=== PATIENT | female | born 1980 ===

== ENCOUNTER 2020-10-10 14:04 | Outpatient (REF) | payer OTHER, SELFPAY | END 2020-10-10 14:05 | disposition home or self-care (01) | LOC: HO.LAB 14:04 | PROVIDERS: PCP Internal Medicine; Visit Provider Internal Medicine | DX: Z20.828 Contact with and (suspected) exposure to other viral communicable diseases (principal) | CPT/HCPCS: C9803; U0003 ==

== ENCOUNTER 2021-03-19 15:12 | Emergency (ER) | payer OTHER, SELFPAY ==
--- NOTE | ~2021-03-19 | CT_ITS ---
EXAMINATION: CT ANGIOGRAM LEFT LOWER EXTREMITY. CLINICAL INFORMATION: Left foot the toes. Delayed capillary refill, apparently ongoing for more than 2 months. COMPARISON: None TECHNIQUE: CTA of the left lower extremity was performed following administration of 80 mL of Omnipaque 350. Axial images were reconstructed in coronal and sagittal pain. This CT examination was performed using dose optimization techniques as appropriate, variously including the following: *Automated exposure control *Adjustment of mA and/or kV according to patient size (this includes techniques or standardized protocols for targeted exams where dose is matched to indication/reason for exam; i.e. extremities or head) *Use of iterative reconstruction technique DLP: 596. mGy-cm FINDINGS: The arterial anatomy is visualized from the level of the midpelvis to the left fourth. The left common iliac, internal and external iliac, the left femoral, popliteal arteries are widely patent. The popliteal artery shows normal trifurcation into the anterior, posterior tibial and peroneal arteries. The posterior tibial artery is widely patent, continued into the plantar aspect of the foot through the tarsal tunnel dividing into medial and lateral plantar arteries. The anterior tibial artery shows significant luminal narrowing and minimal opacification at the level of the anterior part of the ankle, without visualization of the dorsalis pedis artery. The peroneal artery is patent to the level of the distal part of the leg. Within the foot, the plantar arches appear to be patent by dorsalis pedis artery, and its branches are not visualized. This could be technical related to flow phenomenon or underlying pathologic process. CT/CT angio LE LT IMPRESSION: CTA of the left lower extremity shows widely patent arterial tree from the level of the left common iliac artery to the level of the popliteal arterial trifurcation. Three-vessel runoff is seen within the leg to the level of the junction between the proximal two thirds and distal one third of the leg with patent posterior tibial artery seen to the level of the plantar surface of the left foot dividing into medial and lateral to plantar arteries. The distal one third of the anterior tibial artery is not visualized with nonvisualization of the dorsalis pedis artery, likely occluded. The peroneal artery is widely patent at its entire course.
--- NOTE | ~2021-03-19 | XR_ITS ---
EXAMINATION: XR FOOT, LEFT CLINICAL INFORMATION: Pain left foot COMPARISON: None TECHNIQUE: AP, lateral, and oblique views of the left foot. FINDINGS: The bones and soft tissues are normal. No fracture. Alignment is anatomic. Joint spaces are maintained. There is a moderate sized retrocalcaneal and a small calcaneal heel enthesophytes. XR/XR foot LT min 3V IMPRESSION: No acute process. Moderate size retrocalcaneal and small calcaneal heel enthesophytes.
[2021-03-19 16:01] VITALS: BP 149/69; PULSE 76; RESP 16; TEMP 37.3; O2SAT 100; BMI 33.8
--- NOTE | 2021-03-19 17:21 | ED_ITS ---
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 She did have appointments with a physician to evaluate this problem however the appointment got canceled. She states the pain has been gradually worsening. She does not report any other symptoms at this time MD complaint: foot injury Onset (ago): month(s) Injury: Left: foot and toes Type of Injury: unknown Severity: moderate Severity scale (1-10): 5 Relieving factors: nothing Exacerbating factors: weight bearing and movement Associated symptoms: swelling and ambulatory Related Data Home Medications Medication Instructions Recorded Confirmed gabapentin 300 mg capsule 300 mg PO BEDTIME 10/23/20 Previous Rx's Medication Instructions Recorded melatonin 5 mg tablet 10 mg PO BEDTIME #180 tab 08/26/20 labetalol 100 mg tablet 100 mg PO BID 90 Days #180 tab 08/31/20 methocarbamol 500 mg tablet 500 mg PO TID PRN 30 Days #90 tab 10/08/20 aspirin 81 mg tablet,delayed 81 mg PO DAILY 90 Days #90 tab 10/16/20 release lisinopril 10 mg tablet 10 mg PO DAILY #90 tab 10/17/20 gabapentin 100 mg capsule 100 mg PO DAILY 90 Days #90 cap 10/23/20 atorvastatin 40 mg tablet 40 mg PO BEDTIME 90 Days #90 tab 10/29/20 fluoxetine 40 mg capsule 40 mg PO DAILY #30 cap 12/11/20 lorazepam 0.5 mg tablet 0.5 mg PO BID PRN 30 Days #60 tab 02/07/21 Allergies Allergy/AdvReac Type Severity Reaction Status Date / Time No Known Allergies Allergy Verified 03/19/21 16:01 [No Known Allergies*] Review of Systems Review of Systems: Constitutional: No Fever, No Chills ENT/Mouth: No Ear Pain, No Hoarseness, No sore throat Eyes: No Eye Pain, No Swelling, No Redness, No Foreign Body Cardiovascular: No Chest Pain, No SOB Respiratory: No Cough, No Dyspnea Gastrointestinal: No Nausea, No Vomiting, No Diarrhea, No abdominal Pain Genitourinary: No Dysuria, No Hematuria Musculoskeletal: positive left foot and toe pain, No Myalgias, No Joint Swelling Skin: No Skin lacerations, No rash Neuro: No Weakness, No Numbness, No Paresthesias, No Loss of Consciousness, No Dizziness, No Headache Psych: No Anxiety/Panic, No Depression Heme/Lymph: no easy bruising, no Lymphadenopathy Endocrine: No Polyuria, No Polydipsia Yes all other systems are reviewed and are negative FOR[facility] Past Medical History Attestation statement: The following information was validated with the patient. Source: old records reviewed Medical History (Reviewed 03/19/21 @ : by Selin Sparks NP) Blurry vision CAD (coronary artery disease) Ear discomfort Essential hypertension History of stroke Left hemiplegia Surgical History (Reviewed 03/19/21 @ : by Selin Sparks NP) No pertinent past surgical history Family History Family History Father HIV (human immunodeficiency virus infection) Mother Chronic mental illness Asthma Family/Other FH: mental illness Social History Social History (Reviewed 03/19/21 @ 17: by Selin Sparks NP) Smoking Status: Former smoker Tobacco Type: Cigarette Advance Directives: No Advance Directives Information Provided: Yes Patient : No Physical Exam Vital Signs: Vital Signs: Last Vital Signs Temp 99.1 F 03/19/21 16:01 Pulse 76 03/19/21 16:01 Resp 16 03/19/21 16:01 BP 149/69 H 03/19/21 16:01 Pulse Ox 100 03/19/21 16:01 Body Mass Index 33.8 Appearance: Alert. Oriented X3. No acute distress. Eyes: Pupils equal, round and reactive to light. ENT: Pharynx normal. Neck: Normal inspection. Neck supple. CVS: Normal heart rate and rhythm. Pulses normal. Respiratory: No respiratory distress. Breath sounds normal. Abdomen: Soft and nontender. Skin: Skin warm and dry. Normal skin color. Normal skin turgor. Extremities: Left-sided hemiplegia with left upper extremity contracture with orthotic device, has decreased capillary refill to 2nd 3rd and 4th toes, 2nd toe is discolored, no swelling appreciated. Neuro: No motor deficit. No sensory deficit. Course Course Course Narrative: 40-year-old female with past medical history of CVA with left- sided hemiplegia, hypertension, and anxiety presents with several months of left foot pain and intermittent swelling. States that her toes have been discolored and that she has loss of movement. Plan is for CTA of lower extremity. We did consider venous and arterial duplex however the foot and toes would not be visualized. CT A positive for distal tibial occlusion, discussion with Dr. Chan, patient can be followed up as an outpatient in the office tomorrow. I did discuss this with the patient, she does understand that she must follow-up with vascular surgery tomorrow. Consultations Consultation #1: Rocio Time: 21:14 MDM - Extremity Injury (Lower) MDM Narrative Medical decision making narrative: Vascular occlusion, peripheral vascular disease, DVT Medical Records Attestation: I reviewed the patient's medical records. Lab Data Attestation: I reviewed the patient's lab results. Result diagrams: 03/19/21 17:39 03/19/21 17:39 Labs: Lab Results 03/19/21 03/19/21 03/19/21 Range/Units 17:39 17:39 19:43 WBC 9.0 (4.8-10.8) X10*3/uL RBC 4.21 (4.20-5.50) X10*6/uL Hgb 12.1 (12.0-16.0) g/dl Hct 37.2 (37-47) % MCV 88.4 (80-98) fL MCH 28.7 (27.0-33.0) pg MCHC 32.5 (31.0-35.0) g/dl RDW 14.3 (11.0-16.0) % Plt Count 217 (160-400) X10*3/uL MPV 10.0 (9.4-12.3) fL Immature Gran % (Auto) 0.1 (0.0-0.4) % Neut % (Auto) 52.2 (45-73) % Lymph % (Auto) 36.3 (20-40) % [place] % (Auto) 6.4 (2-11) % Eos % (Auto) 4.8 H (0-4) % Baso % (Auto) 0.2 (0-2) % Lymph # (Auto) 3.3 (1.2-4.9) X10*3/uL [place] # (Auto) 0.6 (0.1-1.2) X10*3/uL Eos # (Auto) 0.4 (0.0-0.4) X10*3/uL Baso # (Auto) 0.0 (0.0-0.2) X10*3/uL Abs Immat Gran (auto) 0.01 (0.00-0.03) X10*3/uL Absolute Neuts (auto) 4.7 (2.0-8.3) X10*3/uL Absolute Nucleated RBC 0.000 (0.0-0.012) X10*3/uL Nucleated RBC % (auto) 0.0 (0.0-0.2) /100WBC Sodium 138 (135-145) mmol/L Potassium 4.1 (3.3-5.1) mmol/L Chloride 106 (96-108) mmol/L Carbon Dioxide 25 (22-29) mmol/L Anion Gap 11 L (12-20) BUN 10 (9-16) mg/dL Creatinine 0.80 (0.5-1.4) mg/dL Estim Creat Clear Calc 94.8 Estimated GFR > 60 POC Glucose 94 (60-115) mg/dL Random Glucose 90 (60-115) mg/dL Calcium 8.9 (8.4-10.2) mg/dL Imaging Data CTA left lower extremity: Attestation: I personally reviewed and interpreted this imaging study as follows: Radiologist's impression: EXAMINATION: CT ANGIOGRAM LEFT LOWER EXTREMITY. CLINICAL INFORMATION: Left foot the toes. Delayed capillary refill, apparently ongoing for more than 2 months. COMPARISON: None TECHNIQUE: CTA of the left lower extremity was performed following administration of 80 mL of Omnipaque 350. Axial images were reconstructed in coronal and sagittal pain. This CT examination was performed using dose optimization techniques as appropriate, variously including the following: *Automated exposure control *Adjustment of mA and/or kV according to patient size (this includes techniques or standardized protocols for targeted exams where dose is matched to indication/reason for exam; i.e. extremities or head) *Use of iterative reconstruction technique DLP: 596. mGy-cm FINDINGS: The arterial anatomy is visualized from the level of the midpelvis to the left fourth. The left common iliac, internal and external iliac, the left femoral, popliteal arteries are widely patent. The popliteal artery shows normal trifurcation into the anterior, posterior tibial and peroneal arteries. The posterior tibial artery is widely patent, continued into the plantar aspect of the foot through the tarsal tunnel dividing into medial and lateral plantar arteries. The anterior tibial artery shows significant luminal narrowing and minimal opacification at the level of the anterior part of the ankle, without visualization of the dorsalis pedis artery. The peroneal artery is patent to the level of the distal part of the leg. Within the foot, the plantar arches appear to be patent by dorsalis pedis artery, and its branches are not visualized. This could be technical related to flow phenomenon or underlying pathologic process. CT/CT angio LE LT IMPRESSION: CTA of the left lower extremity shows widely patent arterial tree from the level of the left common iliac artery to the level of the popliteal arterial trifurcation. Three-vessel runoff is seen within the leg to the level of the junction between the proximal two thirds and distal one third of the leg with patent posterior tibial artery seen to the level of the plantar surface of the left foot dividing into medial and lateral to plantar arteries. The distal one third of the anterior tibial artery is not visualized with nonvisualization of the dorsalis pedis artery, likely occluded. The peroneal artery is widely patent at its entire course. Discharge Plan Discharge Clinical Impression: Arterial occlusion Patient Disposition: Home, Self-Care Instructions: Leg Pain (ED) Additional Instructions: You were evaluated for left lower extremity toe discoloration and pain. CT angiogram indicates a suspected occlusion to the anterior tibial artery and dorsalis pedis artery. You must follow-up with vascular surgery. I referred you to Dr. Chan. Please call and request an appointment. Thank you for choosing this emergency department for evaluation. Please follow-up with primary care physician as needed. Return to the emergency department for any new, concerning, or worsening symptoms. Prescriptions: No Action melatonin 5 mg tablet 10 mg PO BEDTIME Qty: 180 RF: 11 labetalol 100 mg tablet 100 mg PO BID 90 Days Qty: 180 RF: 3 methocarbamol 500 mg tablet 500 mg PO TID PRN (Reason: muscle pain) 30 Days Qty: 90 RF: 6 lisinopril 10 mg tablet 10 mg PO DAILY Qty: 90 RF: 1 gabapentin 300 mg capsule 300 mg PO BEDTIME RF: 0 gabapentin 100 mg capsule 100 mg PO DAILY 90 Days Qty: 90 RF: 3 atorvastatin 40 mg tablet 40 mg PO BEDTIME 90 Days Qty: 90 RF: 3 fluoxetine 40 mg capsule 40 mg PO DAILY Qty: 30 RF: 6 lorazepam 0.5 mg tablet 0.5 mg PO BID PRN (Reason: anxiety) 30 Days Qty: 60 RF: 0 aspirin [Adult Aspirin Regimen] 81 mg tablet,delayed release (DR/EC) 81 mg PO DAILY 90 Days Qty: 90 RF: 3 Referrals: Efren Chan MD [Physician] - 2 days (Distal 1/3 of anterior tibial artery and dorsalis pedis artery occluded.) Interventions: ED Discharge Assessment Last Done: 03/19/21 22:16 Discharge Date/Time: 03/19/21 22:18
[2021-03-19 17:44] LABS: MANUAL DIFF FLAG NO
[2021-03-19 17:45] LABS: Basophils Percent Auto 0.2 % (0-2); Eosinophils Absolute Auto 0.4 X10*3/uL (0.0-0.4); Eosinophils Percent Auto 4.8 % (0-4); Hematocrit 37.2 % (37-47); Hemoglobin 12.1 g/dl (12.0-16.0); Imm Gran Abs Auto 0.01 X10*3/uL (0.00-0.03); Imm Gran Pct Auto 0.1 % (0.0-0.4); Lymphocytes Absolute Auto 3.3 X10*3/uL (1.2-4.9); Lymphocytes Percent Auto 36.3 % (20-40); Mean Corpuscular HGB Conc 32.5 g/dl (31.0-35.0); Mean Corpuscular Hemoglobin 28.7 pg (27.0-33.0); Mean Corpuscular Volume 88.4 fL (80-98); Monocytes Absolute Auto 0.6 X10*3/uL (0.1-1.2); Monocytes Percent Auto 6.4 % (2-11); Neutrophils Absolute Auto 4.7 X10*3/uL (2.0-8.3); Neutrophils Percent Auto 52.2 % (45-73); Platelet Count 217 X10*3/uL (160-400); Red Blood Count 4.21 X10*6/uL (4.20-5.50); Red Cell Distribution Width 14.3 % (11.0-16.0)
[2021-03-19 18:07] LABS: Anion Gap 11 (12-20); Blood Urea Nitrogen 10 mg/dL (9-16); Calcium 8.9 mg/dL (8.4-10.2); Carbon Dioxide 25 mmol/L (22-29); Chloride 106 mmol/L (96-108); Creatinine Clr Calc Pharmacy 94.8; Estimated Glomerular Filt Rate > 60; Glucose Random 90 mg/dL (60-115); Potassium 4.1 mmol/L (3.3-5.1); Sodium 138 mmol/L (135-145)
--- NOTE | 2021-03-19 19:20 | PC.NURSE ---
PT TAKEN TO CT SCAN.
[2021-03-19 19:47] LABS: Glucose, Whole Blood 94 mg/dL (60-115)
[2021-03-19] MEDS: iohexoL 350 MG/ML 100 ML INFUS..BTL IV (19:55)
== END 2021-03-19 22:18 | disposition home or self-care (01) ==
PROVIDERS: Nurse Practitioner Family; Emergency Provider Emergency Medicine Emergency Medical Services; PCP Internal Medicine
DX: I74.3 Embolism and thrombosis of arteries of the lower extremities (principal); M79.672 Pain in left foot; I10 Essential (primary) hypertension; I69.354 Hemiplegia and hemiparesis following cerebral infarction affecting left non-dominant side; Z87.891 Personal history of nicotine dependence
CPT/HCPCS: 36415; 73630; 73706; 80048; 82947; 85025; 99284; Q9967

== ENCOUNTER → 2021-03-22 13:53 | Outpatient (BNVA) | payer OTHER, SELFPAY | PROVIDERS: PCP Internal Medicine; Visit Provider Surgery Vascular Surgery | DX: M79.672 Pain in left foot (principal) | CPT/HCPCS: 99202 ==

== ENCOUNTER → 2022-04-30 10:57 | Outpatient (BNVA) | payer MEDICARE, MEDICAID, SELFPAY | PROVIDERS: PCP Internal Medicine; Visit Provider Obstetrics & Gynecology | DX: F32.A Depression, unspecified (principal) | CPT/HCPCS: 99202 ==

== ENCOUNTER → 2023-01-01 11:18 | Outpatient (BNVA) | payer MEDICARE, MEDICAID, SELFPAY | PROVIDERS: PCP Internal Medicine; Visit Provider Obstetrics & Gynecology | DX: Z13.89 Encounter for screening for other disorder (principal) ==

== ENCOUNTER 2023-08-07 10:37 | Outpatient (AMB) | payer OTHER, SELFPAY ==
--- NOTE | 2023-08-07 10:43 | MHC.PC.OV ---
Vital Signs 08/07/23 10:44 Height 5 ft 2 in Weight 181 lb BMI 33.1 BP 120/72 Blood Pressure Location Lt brachial Position Sitting Intake Visit Reasons: PE Intake Note: Patient here for a physical exam [employer] Required: No Accompanied by: Self / Same As Patient Allergies No Known Allergies [No Known Allergies*] Allergy (Verified 08/07/23 11:06) Medication List - Last Reconciled 08/07/23 by Shaista Blanco MD atorvastatin 40 mg PO BEDTIME 90 days fluoxetine 40 mg PO DAILY fluoxetine mg PO gabapentin 100 mg PO DAILY 90 days gabapentin 300 mg PO BEDTIME 90 days labetalol 100 mg PO BID 90 days lisinopril 10 mg PO DAILY lorazepam 0.5 mg PO BID PRN 30 days melatonin 10 mg (2 x 5 mg) PO BEDTIME methocarbamol 500 mg PO TID PRN 30 days Tobacco use date assessed: 04/04/23 Dental Screening Dental Screen Date: 08/07/23 Did you have a dental visit in the last 12 months?: No Did you have a dental problem in the last 6 months where you did not have access to dental care?: No Was dental information given to patient?: Patient has dentist HPI HPI Comments History of Present Illness Details This is a 42-year-old female with mild major depression and left hemiplegia secondary of a stroke that comes today for her physical exam. Depression stable with fluoxetine. Has left hemiplegia with her left arm contracted making a fist and does limp but is able to walk with no assistive device. Has never had a mammogram. Last Pap smear was at [facility] less than a year ago and was normal. [facility] Medical History (Updated 08/07/23 @ 11:56 by Shaista Blanco MD) Dyslipidemia Ear discomfort Blurry vision CAD (coronary artery disease) Left hemiplegia History of stroke Essential hypertension Surgical History No pertinent past surgical history Family History Father HIV (human immunodeficiency virus infection) Mother Chronic mental illness Asthma Family/Other FH: mental illness Social History Housing: Apartment Alcohol intake: never Patient Tobacco Use Status: Current everyday Tobacco user Tobacco use type: Cigarette Cigarettes Per Day: 2 e-Cigarette/Vaping Use: Never Used Second Hand Smoke Exposure: No service: No Current occupational status: unemployed Cognitive needs: No Hearing needs: No Vision needs: No Female Reproductive History Menstrual Age of Menarche: 10 Questionnaire Thrive Questionnaire Date Thrive assessed: 04/04/23 LEX-7 AMB Questionnaire LEX-7 Date LEX - 7 assessed: 04/04/23 Source: Developed by Drs. Lorenzo Montgomery, Harriet Cruz, Lobo Travis and colleagues, with an educational temo from [employer]. Review of Systems Const All systems reviewed & are unremarkable except as noted in HPI and below Eyes Reports no additional complaints, Denies change in vision and Denies other visual disturbances Card Denies chest pain at rest, Denies chest pain with activity, Denies edema, Denies irregular heart rhythm, Denies claudication, Denies dyspnea, Denies dyspnea on exertion, Denies orthopnea, Denies paroxysmal nocturnal dyspnea and Denies slow heart rate Resp Denies cough, Denies dyspnea and Denies dyspnea on exertion GI Denies abdominal pain, Denies change in bowel habits, Denies excessive flatus, Denies nausea and Denies vomiting Denies urinary incontinence, Denies urinary hesitancy and Denies urinary urgency Musc Reports abnormal gait, Denies atrophy, Denies deformity and Denies limited range of motion Skin/Breast Denies bleeding lesions, Denies changing lesions and Denies rash Neuro Reports abnormal gait, Denies lack of coordination and Reports focal weakness Physical exam (Primary Care) Vital Signs: Last Vital Signs BP 120/72 08/07/23 10:44 BMI result Body Mass Index 33.1 Tobacco/Smoking Status: Tobacco use Status Tobacco use date assessed 04/04/23 08/07/23 10:48 Patient Tobacco Use Status Current everyday Tobacco 08/07/23 10:48 Tobacco use type Cigarette 08/07/23 10:48 e-Cigarette/Vaping Use Never Used 08/07/23 10:48 Thrive Assessment: Date of Thrive Assessment Date Thrive assessed 04/04/23 08/07/23 10:48 Const Orientation/consciousness: patient oriented x3 HENMT Head: Yes normal to inspection, Yes normocephalic and Yes atraumatic Ears: external ears normal Eyes General: appearance normal, both eyes and all related structures Eyelids: Yes eyelids normal Conjunctivae: conjunctivae normal Neck Neck: Yes normal visual inspection and Yes supple Resp Effort & Inspection: normal respiratory effort Auscultation: clear to auscultation bilaterally Cardio Jugular venous distension: no JVD Rate: regular rate Rhythm: regular rhythm Heart sounds: S1 normal heart sound present and S2 normal heart sound present GI Inspection: Yes normal to inspection Palpation (GI): Soft to palpation and nontender Auscultation: normal bowel sounds Skin General skin exam: no rashes or lesions noted Neuro General: patient oriented x3 Motor exam (neuro): Abnormal motor strength present (5/5 right, 3/5 left) Extrem General: Yes full ROM Psych Appearance: grossly normal Office Procedures Flu Questionnaire Does the patient have a severe egg allergy?: No Does the patient have severe life threatening allergies?: No Does the patient have a fever or illness today?: No Has the patient ever had Guillain-[place] Syndrome?: No Has the patient ever had any past reaction to a flu shot?: No Immunizations flu vacc [id number] 6mos up(PF) 60 mcg(15 mcgx4)/0.5 mL IM syringe Performing Provider: Shaista Blanco MD Performing Location: [facility] Administered by: MARTÍNEZ Nelson on 08/07/23 11:20 Dose Route Admin Location Dispensed Lot Number Expiration Date NDC Full Time Babysitter 0.5 mL IM Right Deltoid 0.5 mL [id number] 05/02/24 77568-254-00 [facility] VIS Given Date VIS Provided VIS Publication Date 08/07/23 Single Vaccine 21 Eligibility Eligibility Date Funding Source Not [facility] Eligible 08/07/23 Private Assessment and Plan Assessment & Plan (1) Physical exam: Code(s): Z00.00 - Encounter for general adult medical examination without abnormal findings Plan: Repeat in a year (2) Left hemiplegia: Code(s): G81.94 - Hemiplegia, unspecified affecting left nondominant side Plan: Keep blood pressure well control for secondary prophylaxis. Do exercise as tolerated. (3) Mild major depression: Code(s): F32.0 - Major depressive disorder, single episode, mild Plan: Continue SSRIs. Orders: Orders MM screening mammo BI Today Z12.31 - Encounter for screening mammogram for malignant neoplasm of breast Influenza [id number] Immunization Today Z23 - Encounter for immunization Lipid Panel Today E78.5 - Hyperlipidemia, unspecified Comprehensive [place]. Panel Fast Today Z00.00 - Encounter for general adult medical examination without abnormal findings Coding Level of Care Code Est Pt Prev Care 40-64y(89765) Diagnoses Physical exam Z00.00 Left hemiplegia G81.94 Mild major depression F32.0 Time Spent (min) 32
[2023-08-07 10:44] VITALS: BP 120/72; BMI 33.1
== END 2023-08-07 11:23 | disposition home or self-care (01) ==
PROVIDERS: PCP Internal Medicine; Visit Provider Internal Medicine
DX: Z00.00 Encounter for general adult medical examination without abnormal findings (principal); G81.94 Hemiplegia, unspecified affecting left nondominant side; F32.0 Major depressive disorder, single episode, mild; Z23 Encounter for immunization
CPT/HCPCS: 90471; 90686; 99396

== ENCOUNTER 2023-08-29 10:07 | Outpatient (REF) | payer OTHER, SELFPAY ==
--- NOTE | ~2023-08-29 | MM_ITS ---
EXAMINATION: MM SCREENING DIGITAL BREAST TOMOSYNTHESIS, BILATERAL CLINICAL INFORMATION: Screening. Asymptomatic. COMPARISON: Mammography: There are no prior mammograms for comparison. This is a baseline study. TECHNIQUE: Digital breast tomosynthesis is performed in both the craniocaudal and mediolateral oblique views along with computer-aided detection (CAD). Synthesized 2D images are generated from the tomosynthesis. FINDINGS: There are scattered areas of fibroglandular density (ACR BI-RADS breast composition Category b). There are no significant masses, abnormal calcifications, or other abnormalities. MM/MM tomosynthesis screening BI IMPRESSION: No mammographic evidence of malignancy. ASSESSMENT: BI-RADS BI-RADS 1 - Negative RECOMMENDATION: Routine annual mammography screening. 1 year F/U This examination should not preclude the clinical evaluation of a suspicious palpable abnormality. This patient's information was entered into a reminder system with a target due date for their next mammogram.
== END 2023-08-29 10:08 | disposition home or self-care (01) ==
LOC: HO.MAMMO 10:07
PROVIDERS: Visit Provider Internal Medicine
DX: Z12.31 Encounter for screening mammogram for malignant neoplasm of breast (principal)
CPT/HCPCS: 77063; 77067

== ENCOUNTER → 2023-08-29 10:15 | Outpatient (BNV) | payer OTHER, SELFPAY | PROVIDERS: Visit Provider Radiology Diagnostic Radiology | DX: Z12.31 Encounter for screening mammogram for malignant neoplasm of breast (principal) | CPT/HCPCS: 77063; 77067 ==

== ENCOUNTER 2024-07-08 09:53 | Emergency (ER) | payer OTHER, SELFPAY ==
[2024-07-08 10:09] VITALS: BP 129/56; PULSE 70; RESP 20; TEMP 36.6; O2SAT 97; BMI 33.8
--- NOTE | 2024-07-08 11:29 | ED_ITS ---
HPI - Ear Problem General Chief complaint: Ear Problems Stated complaint: r ear pain Time Seen by Provider: 07/08/24 11:28 Source: patient Mode of arrival: ambulatory Limitations: no limitations History of Present Illness ED Provider: Javier PHILIPPE HPI Narrative: This is a 43-year-old female history of dyslipidemia, blurry vision, history of stroke with remnant left-sided hemiplegia, hypertension, coronary artery disease presenting to the emergency department with complaints of right-sided ear pain/itching ongoing for the past 3 days. Reports discomfort is constant in nature. URi about a month ago that resolved. No sick contacts. Denies chest pain, shortness of breath, nausea vomiting, headache, vision changes, dizziness, weakness, fevers, chills, abdominal pain. Related Data Home Medications ?Medication ?Instructions ?Recorded ?Confirmed fluoxetine 20 mg capsule mg PO 01/01/23 08/07/23 Previous Rx's ?Medication ?Instructions ?Recorded lorazepam 0.5 mg tablet 0.5 mg PO BID PRN anxiety 30 days 03/08/22 #60 tabs fluoxetine 40 mg capsule 40 mg PO DAILY #90 caps 03/11/22 atorvastatin 40 mg tablet 40 mg PO BEDTIME 90 days #90 tabs 10/24/23 melatonin 5 mg tablet 10 mg (2 x 5 mg) PO BEDTIME #180 02/21/24 tabs gabapentin 300 mg capsule 300 mg PO BEDTIME 90 days #90 caps 03/22/24 labetalol 100 mg tablet 100 mg PO BID 90 days #180 tabs 05/31/24 lisinopril 10 mg tablet 10 mg PO DAILY #90 tabs 06/02/24 methocarbamol 500 mg tablet 500 mg PO TID PRN muscle pain 30 06/13/24 days #90 tabs gabapentin 100 mg capsule 100 mg PO DAILY 90 days #90 caps 07/02/24 amoxicillin 875 mg-potassium 1 tab PO BID 10 days #20 tabs 07/08/24 clavulanate 125 mg tablet ciprofloxacin 0.3 %-dexamethasone 4 drp otic (ears) BID 7 days #7.5 07/08/24 0.1 % ear drops,suspension mL (Ciprodex) Allergies Allergy/AdvReac Type Severity Reaction Status Date / Time No Known Allergies Allergy Verified 07/08/24 10:13 [No Known Allergies*] Review of Systems Review of Systems: Yes all other systems are reviewed and are negative [facility] Past Medical History Attestation statement: The following information was validated with the patient. Source: old records reviewed and nursing notes reviewed Medical History Dyslipidemia Ear discomfort Blurry vision CAD (coronary artery disease) Left hemiplegia History of stroke Essential hypertension Surgical History No pertinent past surgical history Family History Family History Father HIV (human immunodeficiency virus infection) Mother Chronic mental illness Asthma Family/Other FH: mental illness Social History Social History Housing: Apartment Alcohol intake: never Patient Tobacco Use Status: Current everyday Tobacco user Tobacco use type: Cigarette Cigarettes Per Day: 2 e-Cigarette/Vaping Use: Never Used Second Hand Smoke Exposure: No Advance Directives: Yes Advance Directives Information Provided: Yes Advance Directives on File: No Do you have a plan to hurt others: No Plan service: No Current occupational status: unemployed Cognitive needs: No Hearing needs: No Vision needs: No Physical Exam Vital Signs: Vital Signs: Last Vital Signs Temp 97.9 F 07/08/24 10:09 Pulse 70 07/08/24 10:09 Resp 20 07/08/24 10:09 BP 129/56 L 07/08/24 10:09 Pulse Ox 97 07/08/24 10:09 O2 Del Method Room Air 07/08/24 10:09 BMI result Body Mass Index 33.8 vss Appearance: Alert.? Oriented X3.? No acute distress.? Head: Normocephalic, atraumatic, no step-offs or deformities Eyes: Pupils equal, round and reactive to light.? ENT: Pharynx normal.??Pain with manipulation of right external ear. Erythema and warmth to the right tympanic membrane with bulging. Normal left tympanic membrane and ear canal. Ear canal on the right also erythematous and bulging. CVS: Pulses normal.? Respiratory: No respiratory distress.? Skin: Skin warm and dry.? Normal skin color.? Normal skin turgor.? Extremities: No lower extremity edema.? No calf ttp. 5/5 strength to bilateral upper and lower extremities Back: No midline tenderness, no C-spine tenderness, full range of motion, no CVA tenderness bilaterally Neuro: Oriented X 3.? No motor deficit.? No sensory deficit. CN 2-12 intact Medical Decision Making Medical Decision Making [facility] Narrative: 43-year-old female presents with right-sided ear pain for the past 3 days. Physical exam Pharynx normal.??Pain with manipulation of right external ear. Erythema and warmth to the right tympanic membrane with bulging. Normal left tympanic membrane and ear canal. Ear canal on the right also erythematous and bulging. History and physical exam concerning for otitis media and possible otitis externa. No signs of mastoiditis, meningitis, encephalitis, perforated tympanic membrane, foreign body in ear or necrotizing infection. Plan will discharge her home with antibiotics and ear drops. Differential Diagnosis Differential Diagnoses: The differential diagnosis associated with the presentation includes History and physical exam concerning for otitis media and possible otitis externa. No signs of mastoiditis, meningitis, encephalitis, perforated tympanic membrane, foreign body in ear or necrotizing infection. Admission/Observation Consideration of admission/observation: Escalation of care including admission/observation considered Lab Data [facility] Lab Attestation statement: I reviewed the patient's lab results. External Record Review External record reviewed: Office record and Outpatient record Prescription Management I considered prescription management with: Antibiotic Chronic Conditions Patient?s care impacted by: Other (stroke, hemipalegia, htn, cad ) Critical Care Time Critical Care Time Critical Care Time: No Discharge Plan Discharge Clinical Impression: Otitis externa, Otitis media Patient Disposition: Home, Self-Care Instructions: Otitis Externa (ED), How to Use Ear Drops (ED), Ear Infection (ED) Additional Instructions: Take your medications as prescribed. If you were prescribed antibiotics today, it is important that you take your medication to their entirety, do not skip any doses, do not finish them early. Follow-up with your primary care provider this week. Return to the emergency department with new or worsening symptoms. Such as fevers, chills, chest pain, shortness of breath, nausea, vomiting, dizziness, headache, vision changes, lethargy In case of emergency call 911 Prescriptions: New amoxicillin-pot clavulanate 875-125 mg tablet 1 tab PO BID 10 Days Qty: 20 0RF ciprofloxacin-dexamethasone [Ciprodex] 0.3-0.1 % drops,suspension 4 drp otic (ears) BID 7 Days Qty: 7.5 0RF No Action lorazepam 0.5 mg tablet 0.5 mg PO BID PRN (Reason: anxiety) 30 Days Qty: 60 0RF fluoxetine 40 mg capsule 40 mg PO DAILY Qty: 90 2RF atorvastatin 40 mg tablet 40 mg PO BEDTIME 90 Days Qty: 90 3RF melatonin 5 mg tablet 10 mg PO BEDTIME Qty: 180 11RF gabapentin 300 mg capsule 300 mg PO BEDTIME 90 Days Qty: 90 1RF labetalol 100 mg tablet 100 mg PO BID 90 Days Qty: 180 3RF lisinopril 10 mg tablet 10 mg PO DAILY Qty: 90 3RF methocarbamol 500 mg tablet 500 mg PO TID PRN (Reason: muscle pain) 30 Days Qty: 90 0RF gabapentin 100 mg capsule 100 mg PO DAILY 90 Days Qty: 90 3RF fluoxetine 20 mg capsule PO Referrals: Shaista Ma MD [Primary Care Provider] - 2 days Stand Alone Forms: Work/School Release Print Language: Kinyarwanda
[2024-07-08 12:02] VITALS: BP 129/56; PULSE 70; RESP 20; TEMP 36.6; O2SAT 97
== END 2024-07-08 12:03 | disposition home or self-care (01) ==
PROVIDERS: Emergency Provider Emergency Medicine; PCP Internal Medicine
DX: H60.91 Unspecified otitis externa, right ear (principal); H66.91 Otitis media, unspecified, right ear; H92.01 Otalgia, right ear; I10 Essential (primary) hypertension; E78.5 Hyperlipidemia, unspecified; F17.210 Nicotine dependence, cigarettes, uncomplicated
CPT/HCPCS: 99282; 99283

== ENCOUNTER 2024-07-16 13:34 | Outpatient (AMB) | payer OTHER, SELFPAY ==
[2024-07-16 13:48] VITALS: BP 118/70; PULSE 88; O2SAT 98; BMI 34.1
--- NOTE | 2024-07-16 13:48 | A.OFFPC_ITS ---
Vital Signs 07/16/24 13:48 Height 5 ft 2 in Weight 186 lb 8 oz BMI 34.1 BP 118/70 Blood Pressure Location Lt brachial Position Sitting Pulse 88 Pulse Source Pulse Oximeter Pulse Oximetry (%) 98 Oxygen Delivery Method Room Air Intake Visit Reasons: EDF [facility] 07/08 Right Ear Pain Tail Dogger Required: No Accompanied by: Self / Same As Patient Allergies No Known Allergies [No Known Allergies*] Allergy (Verified 07/16/24 13:49) Tobacco use date assessed: 04/04/23 Dental Screening Dental Screen Date: 08/07/23 HPI HPI Comments History of Present Illness Details 43 y/o female patient who [facility] ED follow up. Pt was admitted at [facility] on 07/08/24 for Right ear Otitis media. She was discharge home the same day with Oral Antibiotics and Ear Drops. She is still on the course and reports pain has greatly improved. [facility] Medical History Dyslipidemia Ear discomfort Blurry vision CAD (coronary artery disease) Left hemiplegia History of stroke Essential hypertension Surgical History No pertinent past surgical history Family History Father HIV (human immunodeficiency virus infection) Mother Chronic mental illness Asthma Family/Other FH: mental illness Social History Housing: Apartment Alcohol intake: never Patient Tobacco Use Status: Current everyday Tobacco user Tobacco use type: Cigarette Cigarettes Per Day: 2 e-Cigarette/Vaping Use: Never Used Second Hand Smoke Exposure: No service: No Current occupational status: unemployed Cognitive needs: No Hearing needs: No Vision needs: No Female Reproductive History Menstrual Age of Menarche: 10 Questionnaire Thrive Questionnaire Date Thrive assessed: 04/04/23 LEX-7 AMB Questionnaire LEX-7 Date LEX - 7 assessed: 04/04/23 Source: Developed by Drs. Lorenzo Montgomery, Harriet Cruz, Lobo Travis and colleagues, with an educational temo from [employer]. Review of Systems Const All systems reviewed & are unremarkable except as noted in HPI and below Physical exam (Primary Care) Vital Signs: Last Vital Signs Pulse 88 07/16/24 13:48 BP 118/70 07/16/24 13:48 Pulse Ox 98 07/16/24 13:48 Oxygen Delivery Method Room Air 07/16/24 13:48 BMI result Body Mass Index 34.1 Tobacco/Smoking Status: Tobacco use Status Tobacco use date assessed 04/04/23 07/16/24 13:49 Patient Tobacco Use Status Current everyday Tobacco 07/16/24 13:49 Tobacco use type Cigarette 07/16/24 13:49 e-Cigarette/Vaping Use Never Used 07/16/24 13:49 Thrive Assessment: Date of Thrive Assessment Date Thrive assessed 04/04/23 07/16/24 13:49 Const General: cooperative, comfortable and no acute distress Nutritional Appearance: obese Orientation/consciousness: patient oriented x3 HENMT Ears: external ears normal, TM normal on the left and TM abnormal erythematous on the right and with fluid behind the TM on the right Face and sinus: Yes sinuses nontender Mouth: moist mucous membranes Resp Effort & Inspection: normal respiratory effort Cardio Heart sounds: S1 normal heart sound present and S2 normal heart sound present Skin General skin exam: no rashes or lesions noted Neuro General: patient oriented x3, gait normal and moves all extremities Psych Speech and movement: Normal speech and movement present Assessment and Plan Assessment & Plan (1) Otitis media: Code(s): H66.90 - Otitis media, unspecified, unspecified ear Qualifiers: Chronicity: acute Laterality: right Recurrence: non-recurrent Spontaneous tympanic membrane rupture: without spontaneous rupture Otitis media type: suppurative Qualified Code(s): H66.001 - Acute suppurative otitis media without spontaneous rupture of ear drum, right ear Plan: Continue on Abx as prescribed until complete dose Acetaminophen for pain relief Coding Level of Care Code Est Pt Level 4 (19827) Diagnoses Non-recurrent acute suppurative otitis media of right ear without spontaneous rupture of tympanic membrane H66.001 Chronicity: acute Laterality: right Recurrence: non-recurrent Spontaneous tympanic membrane rupture: without spontaneous rupture Otitis media type: suppurative Time Spent (min) 20
== END 2024-07-16 14:51 | disposition home or self-care (01) ==
PROVIDERS: PCP Internal Medicine; Visit Provider Nurse Practitioner Family
DX: H66.001 Acute suppurative otitis media without spontaneous rupture of ear drum, right ear (principal)
CPT/HCPCS: 99214

== ENCOUNTER 2025-09-12 11:35 | Outpatient (AMB) | payer OTHER, SELFPAY ==
[2025-09-12 11:48] VITALS: BP 136/80; PULSE 73; O2SAT 98; BMI 31.3
--- NOTE | 2025-09-12 11:48 | A.OFFPC_ITS ---
Vital Signs 09/12/25 11:48 Height 5 ft 2 in Weight 171 lb 4 oz BMI 31.3 BP 136/80 Blood Pressure Location Lt brachial Position Sitting Pulse 73 Pulse Source Pulse Oximeter Pulse Oximetry (%) 98 Oxygen Delivery Method Room Air Intake Visit Reasons: Annual Physical Digital Media Planner Required: No Accompanied by: Self / Same As Patient Allergies No Known Allergies (No Known Allergies*) Allergy (Verified 09/12/25 11:48) Medication List - Last Reconciled 09/12/25 by Nasreen Montanez MD atorvastatin 40 mg PO BEDTIME 90 days ciprofloxacin-dexamethasone 0.3-0.1 % (Ciprodex) 4 drps otic (ears) BID 7 days fluoxetine 40 mg PO DAILY fluoxetine mg PO gabapentin 100 mg PO DAILY 90 days gabapentin 300 mg PO BEDTIME 90 days labetalol 100 mg PO BID 90 days lisinopril 10 mg PO DAILY lorazepam 0.5 mg PO BID PRN 30 days melatonin 10 mg (2 x 5 mg) PO BEDTIME methocarbamol 500 mg PO TID PRN omeprazole 20 mg PO DAILY 90 days Tobacco use date assessed: 09/12/25 Dental Screening Dental Screen Date: 09/12/25 HPI HPI Comments History of Present Illness Details Patient is a 45-year-old female with a history of hypertension, hyperlipidemia, CAD, stroke with residual left hemiplegia, major depression presenting today for annual physical exam. Patient reports new onset pain and swelling in her left toe for the past 3 days. Reports some pain in the smaller toes of the same foot. She has tried Motrin i n the past 3 days without much relief. Denies personal history of gout. Reports family history of gout. 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 Reports uncontrolled pain. swollen left big toe She reports currently seeing a psychiatrist for her depression and being maintained on fluoxetine 60 mg daily Patient wears prescription glasses, and noted vision changes recently and would like to see an ophthalmology for eye exam. Patient is also requesting referral to dietitian to help with guidance for healthier food options. [facility] Medical History Dyslipidemia Ear discomfort Blurry vision CAD (coronary artery disease) Left hemiplegia History of stroke Essential hypertension Surgical History No pertinent past surgical history Family History Father HIV (human immunodeficiency virus infection) Mother Chronic mental illness Asthma Family/Other FH: mental illness Social History Housing: Apartment Alcohol intake: never Patient Tobacco Use Status: Current everyday Tobacco user Tobacco use type: Cigarette Cigarettes Per Day: 2 e-Cigarette/Vaping Use: Never Used Second Hand Smoke Exposure: No service: No Current occupational status: unemployed Cognitive needs: No Hearing needs: No Vision needs: No Female Reproductive History Menstrual Age of Menarche: 10 Questionnaire PHQ-9 Over the last 2 weeks, how often have you been bothered by any of the following problems? 1. Little interest or pleasure in doing things: several days 2. Feeling down, depressed, or hopeless: not at all 3. Trouble falling or staying asleep, or sleeping too much: not at all 4. Feeling tired or having little energy: several days 5. Poor appetite or overeating: not at all 6. Feeling bad about yourself - or that you are a failure or have let yourself or your family down: not at all 7. Trouble concentrating on things, such as reading the newspaper or watching television: several days 8. Moving or speaking so slowly that other people could have noticed. Or the opposite - being so fidgety or restless that you have been moving around a lot more than usual: not at all 9. Thoughts that you would be better off or of hurting yourself in some way: not at all Total score: 3 Source: Developed by Drs. Lorenzo Montgomery, Harriet Cruz, Lobo Travis and colleagues, with an educational temo from [employer]. Thrive Questionnaire Date Thrive assessed: 09/12/25 I am a: Patient What is your living situation today?: I have a steady place to live Within the past 12 months, did the food you bought not last and you didn't have the money to get more?: Never true Within the past 12 months, did you worry whether your food would run out before you got money to buy more?: Never true Do you have trouble paying for medicines?: No Do you have trouble getting transportation to medical appointments?: No Do you have trouble paying your heating and electricity bill?: No Do you have trouble taking care of your child, family member or friend?: No Do you have trouble with day-to-day activities such as bathing, preparing meals, shopping, managing finances, etc.?: No Are you currently unemployed and looking for a job?: Yes Are you interested in more education?: No Please select the resources that you would like help with: None Currently or been in a relationship where the following occur: No concerns reported THRIVE Score: 0 AUDIT C Alcohol Use Questionnaire (AUDIT-C) 1. How often do you have a drink containing alcohol?: Never 3. How often do you have six or more drinks on one occasion?: Never Total Score: 0 LEX-7 AMB Questionnaire LEX-7 Date LEX - 7 assessed: 09/12/25 Feeling nervous, anxious, or on edge: 0 = Not at all Not being able to stop or control worryin = Several days Worrying too much about different things: 1 = Several days Trouble relaxin = Several days Being so restless that it is hard to sit still: 1 = Several days Becoming easily annoyed or irritable: 1 = Several days Feeling afraid as if something awful might happen: 0 = Not at all Total LEX-7 score (0-4 normal; 5-9 mild; 10-14 moderate; 15-21 severe): 5 Source: Developed by Drs. Lorenzo Montgomery, Harriet Cruz, Lobo Travis and colleagues, with an educational temo from [employer]. Physical exam (Primary Care) Vital Signs: Last Vital Signs Pulse 73 09/12/25 11:48 BP 136/80 09/12/25 11:48 Pulse Ox 98 09/12/25 11:48 Oxygen Delivery Method Room Air 09/12/25 11:48 General: Well-appearing, alert, oriented ?3, in no acute distress. HEENT: Normocephalic, atraumatic, PERRLA, EOMI, no scleral icterus. External ears normal, tympanic membranes intact bilaterally, no erythema or effusion. Nares patent, normal mucosa pink, no discharge. No oral lesions, or pharyngeal erythema. Neck Supple. Cardiovascular: RRR, S1-S2 appreciated, no murmurs, rubs or gallops. Respiratory: Lungs clear to auscultation bilaterally, no wheezes, rales or rhonchi. Abdomen: Soft, nontender, nondistended. Normoactive bowel sounds. MSK: left arm contracted making fist. Patient lives but walks without assistive devices. Swelling and erythema in left hallux joint, to a lesser extent in the rest of the toes. Normal right foot toes. Neurologic: Alert and oriented X3, cranial nerves II?XII grossly intact. BMI result Body Mass Index 31.3 Tobacco/Smoking Status: Tobacco use Status Tobacco use date assessed 09/12/25 09/12/25 11:55 Patient Tobacco Use Status Current everyday Tobacco 09/12/25 11:55 Tobacco use type Cigarette 09/12/25 11:55 e-Cigarette/Vaping Use Never Used 09/12/25 11:55 PHQ-9: PHQ-9 Score PHQ-9: Total score 3 09/12/25 13:36 Thrive Assessment: Date of Thrive Assessment Date Thrive assessed 09/12/25 09/12/25 11:55 Currently or been in a relationship where the following occur: No concerns reported Office Procedures Flu Questionnaire Does the patient have a severe egg allergy?: No Does the patient have severe life threatening allergies?: No Does the patient have a fever or illness today?: No Has the patient ever had Guillain-Raywick Syndrome?: No Has the patient ever had any past reaction to a flu shot?: No Immunizations Fluarix [id number] (PF) 45 mcg (15 mcg x 3)/0.5 mL IM syringe Performing Provider: Nasreen Montanez MD Performing Location[facility] Administered by: Angela Ragsdale LPN on 09/12/25 13:36 Dose Route Admin Location Dispensed Lot Number Expiration Date [facility] Authorization Manager 0.5 mL IM Right Deltoid 0.5 mL [id number] 05/02/26 [id number] [employer] VIS Given Date VIS Provided VIS Publication Date 09/12/25 Single Vaccine 24 Eligibility Eligibility Date Funding Source Not [facility] Eligible 09/12/25 Private Boostrix Tdap 2.5 Lf unit-8 mcg-5 Lf/0.5 mL intramuscular syringe Performing Provider: Nasreen Montanez MD Performing Location[facility] Administered by: Angela Ragsdale LPN on 09/12/25 13:36 Dose Route Admin Location Dispensed Lot Number Expiration Date [facility] Authorization Manager 0.5 mL IM Right Deltoid 0.5 mL [id number] 04/14/28 02411-438-15 [employer] Total Dispensed Waste 0.5 mL 0 % VIS Given Date VIS Provided VIS Publication Date 09/12/25 Single Vaccine 21 Eligibility Eligibility Date Funding Source Not [facility] Eligible 09/12/25 Private Coding Level of Care Code Est Pt Prev Care 40-64y([id number]) Diagnoses Physical exam Z00.00 Major depressive disorder in remission, unspecified whether recurrent F32.5 Active/Remission status: in remission of unspecified degree Depression Type: major depressive disorder Major depression recurrence: unspecified whether recurrent Left hemiplegia G81.94 Breast cancer screening by mammogram Z12.31 Toe swelling M79.89 Vision changes H53.9 Class 1 obesity due to excess calories with body mass index (BMI) of 31.0 to 31.9 in adult, unspecified whether serious comorbidity present E66.09; Z68.31 Body mass index: BMI 31.0-31.9 Obesity classification: adult class 1 (BMI 30 - 34.9) Obesity type: due to excess calories Serious obesity comorbidity presence: unspecified whether serious comorbidity present Assessment & Plan Assessment & Plan (1) Physical exam: Code(s): Z00.00 - Encounter for general adult medical examination without abnormal findings Category: Medical Plan: Healthcare maintenance: Mammogram 08/2023 BI-RADS 1-negative. Mammogram ordered Last Pap smear January 2020 - due, referred to Obgyn Colonoscopy: N/A Tdap given today Obtain blood work (2) Depression: Comment: With anxiety Code(s): F32.A - Depression, unspecified Category: Medical Qualifiers: Active/Remission status: in remission of unspecified degree Depression Type: major depressive disorder Major depression recurrence: unspecified whether recurrent Qualified Code(s): F32.5 - Major depressive disorder, single episode, in full remission Plan: Patient with history of depression, currently being managed with Psychiatry. On fluoxetine 60 mg daily (3) Left hemiplegia: Code(s): G81.94 - Hemiplegia, unspecified affecting left nondominant side Category: Medical Plan: Patient with chronic neuropathic pain the setting of history of stroke with residual left hemiplegia. Reports uncontrolled pain. Currently on gabapentin 100 mg in the morning, and 300 mg at bedtime. -will increase gabapentin regimen to include 200 mg in the morning in addition to her current regimen of 100 mg in the afternoon, and 300 mg at bedtime (4) Breast cancer screening by mammogram: Code(s): Z12.31 - Encounter for screening mammogram for malignant neoplasm of breast Plan: Due for mammogram, ordered (5) Toe swelling: Code(s): M79.89 - Other specified soft tissue disorders Plan: Patient presenting with left hallux joint swelling, pain and erythmea for the past 3 days, could be gout, OA Plan: - medrol pack - obtain Uric acid - Xray of left toes (6) Vision changes: Code(s): H53.9 - Unspecified visual disturbance Plan: Patient wears prescription glasses, and noted vision changes recently and would like to see an ophthalmology for eye exam. Referral provided (7) Obesity: Code(s): E66.9 - Obesity, unspecified Category: Medical Qualifiers: Body mass index: BMI 31.0-31.9 Obesity classification: adult class 1 (BMI 30 - 34.9) Obesity type: due to excess calories Serious obesity comorbidity presence: unspecified whether serious comorbidity present Qualified Code(s): E66.09 - Other obesity due to excess calories; Z68.31 - Body mass index [BMI] 31.0-31.9, adult Plan: Dietitian referral for nutrition counseling provided Orders: Orders XR toe LT min 2V Today M79.89 - Other specified soft tissue disorders Complete Blood Count Auto Diff Today I10 - Essential (primary) hypertension Lipid Panel with Reflex Today E78.5 - Hyperlipidemia, unspecified Influenza [id number] Immunization Today Z23 - Encounter for immunization MM tomosynthesis screening BI Today Z12.31 - Encounter for screening mammogram for malignant neoplasm of breast Comprehensive Met. Panel Today I10 - Essential (primary) hypertension Uric Acid Today M79.89 - Other specified soft tissue disorders TDaP Immunization Today Z23 - Encounter for immunization Referrals FIELD RECORDER Referral N92.6 - Irregular menstruation, unspecified Nutrition/Dietitian Referral E66.9 - Obesity, unspecified Ophthalmology Referral H53.9 - Unspecified visual disturbance Medications: New gabapentin 200 mg (2 x 100 mg) PO DAILY 180 caps 0RF 90 days methylprednisolone PO PER PKG DIR for 6 days 21 ea 0RF gout
== END 2025-09-12 12:39 | disposition home or self-care (01) ==
LOC: HO.HMCH 11:36
PROVIDERS: PCP Internal Medicine; Visit Provider Student in an Organized Health Care Education/Training Program
DX: Z00.00 Encounter for general adult medical examination without abnormal findings (principal); F32.5 Major depressive disorder, single episode, in full remission; G81.94 Hemiplegia, unspecified affecting left nondominant side; Z12.31 Encounter for screening mammogram for malignant neoplasm of breast; M79.89 Other specified soft tissue disorders; H53.9 Unspecified visual disturbance; E66.09 Other obesity due to excess calories; Z68.31 Body mass index [BMI] 31.0-31.9, adult; Z23 Encounter for immunization

== ENCOUNTER 2025-09-12 11:35 | Outpatient (REF) | payer OTHER, SELFPAY ==
--- NOTE | ~2025-09-12 | XR_ITS ---
EXAMINATION: XR TOES, LEFT CLINICAL INFORMATION: M79.89 - Other specified soft tissue disorders COMPARISON: None available. TECHNIQUE: AP left foot and two-view left great toe x-ray FINDINGS: Claw toe or hammertoe deformity is noted involving second - fifth digits. No fractures identified. There is soft tissue swelling at the midfoot. XR/XR toe LT min 2V IMPRESSION: Claw toe or hammertoe deformity is noted involving second - fifth digits. Midfoot soft tissue swelling. Electronically signed by: Edi Levy MD 09/12/2025 03:20 PM GEN
== END 2025-09-12 11:36 | disposition home or self-care (01) ==
LOC: HO.XRAY 11:35
PROVIDERS: PCP Internal Medicine; Visit Provider Student in an Organized Health Care Education/Training Program
DX: M79.89 Other specified soft tissue disorders (principal)
CPT/HCPCS: 73660

== ENCOUNTER → 2025-09-12 12:48 | Outpatient (BNV) | payer OTHER, SELFPAY | PROVIDERS: PCP Internal Medicine; Visit Provider Radiology Diagnostic Radiology | DX: M79.89 Other specified soft tissue disorders (principal) | CPT/HCPCS: 73660 ==

== ENCOUNTER 2025-10-18 10:32 | Outpatient (AMB) | payer OTHER, SELFPAY ==
[2025-10-18 10:52] VITALS: BMI 32.0
--- NOTE | 2025-10-18 10:52 | A.OFFVIS_ITS ---
Vital Signs 10/18/25 10:52 Height 5 ft 2 in Weight 175 lb BMI 32.0 Intake Visit Reasons: Other hammer toe(s) (acquired), left foot Intake Note: Chantal is a 45 year old female who presents today as a new patient for an evaluation of her left foot hammer toes. Patient reports this has been george on for about 2 years after she had a stroke. She has not tried any previous treatment for the hammer toes. X-rays of her toes where taken on 09/12/25 and is all set in patients chart. Allergies No Known Allergies (No Known Allergies*) Allergy (Verified 10/18/25 10:53) HPI Comments Details: Chief Complaint The patient presents with contractures and spasms in her left foot, which have been present since she had a stroke five years ago. History of Present Illness The patient is a 45-year-old female presenting for evaluation of left-sided contractures, primarily affecting her foot and toes, as a sequela of a stroke. She had a stroke five years ago which she states happened after a Depo-Provera injection and underlying high blood pressure, with concurrent use of Sudafed at the time. Following the stroke, she developed contractures in her left hand, arm, knee, ankle, and foot. She experiences intermittent spasms in her toes, which can sometimes straighten out. The patient has also noticed other changes on her affected side, including altered nail appearance and reduced hair growth. Her current medications for these symptoms include gabapentin and Robaxin. Past interventions include extensive physical and occupational therapy. She has not had consistent neurologic follow-up since one visit at the initial period after her hospitalization. The patient also reports a history of depression related to her condition, which has affected her engagement with care. Medical History: - Cerebrovascular accident (5 years ago) - Hypertension - Depression Social History: - Functional status: The patient is ambulatory and does not use a brace or other assistive devices. She states she does walk with a limp, specifically whenever her spasms occur. - She reports a history of depression related to her medical condition. - She has previously undergone physical and occupational therapy. [facility] Medical History Dyslipidemia Ear discomfort Blurry vision CAD (coronary artery disease) Left hemiplegia History of stroke Essential hypertension Surgical History No pertinent past surgical history Family History Father HIV (human immunodeficiency virus infection) Mother Chronic mental illness Asthma Family/Other FH: mental illness Social History Housing: Apartment Alcohol intake: never Patient Tobacco Use Status: Current everyday Tobacco user Tobacco use type: Cigarette Cigarettes Per Day: 2 e-Cigarette/Vaping Use: Never Used Second Hand Smoke Exposure: No service: No Current occupational status: unemployed Cognitive needs: No Hearing needs: No Vision needs: No Female Reproductive History Menstrual Age of Menarche: 10 Review of Systems Const All systems reviewed & are unremarkable except as noted in HPI and below Physical Exam Exam Exam: Diagnostic results - Imaging: An x-ray of the foot showed a significant amount of arthritis. Pathology results Physical Exam - Gait: Ambulates independently without an assistive device. Gait is noted to be almost normal when toe spasms are absent. - Musculoskeletal: On examination of the left ankle, the patient demonstrates good (5/5) strength with plantarflexion, dorsiflexion, inversion, and eversion. - Left Foot: Spastic contractures of the toes are noted. The second toe has a fixed contracture at the proximal interphalangeal joint that does not straighten with passive manipulation. Mild arthritis is noted in the toe joints. No tension is palpated in the hand tendons. Vital Signs: BMI result Body Mass Index 32.0 Extrem Other: *Bilateral Lower Extremity Focused Exam Vascular: DP/PT 2/4, CFT<3s to all digits, TG warm to cool, no pedal edema Derm: Dystrophic discolored thickened nails x3 left foot, x2 right foot with subungual debris. Neuro: gross diminished to left lower extremity MSK: Muscle strength 5/5 to left foot and ankle muscle compartments. Intermittent spasms to left foot and ankle with hammertoe deformities. The left 2nd PIPJ of the mild flexion deformity, all other digits are neutral without flexion deformities. Gait: no left foot drop Results Reviewed Results Reviewed: X-ray Read: 09/12/2025 X-ray left toes 3 views (AP, MO, Lateral) reviewed which shows flexion contracture deformities of digits 1 through 5, no fractures. No evidence of swelling, foreign body, or calcifications. I personally reviewed the imaging and my findings are listed above. Assessment & Plan Assessment & Plan (1) Left hemiplegia: Code(s): G81.94 - Hemiplegia, unspecified affecting left nondominant side Category: Medical Plan: * The patient's left-sided contractures and spasticity are consequences of a stroke sustained five years ago. * A referral will be placed to Neurology for evaluation and management of post- stroke spasticity. * A consultation with a hand surgeon, Dr. Field, was also recommended for her hand contractures, after she sees a neurologist. (2) History of stroke: Code(s): Z86.73 - Personal history of transient ischemic attack (TIA), and cerebral infarction without residual deficits Category: Medical (3) Acquired hammer toe deformity of lesser toe of left foot: Code(s): M20.42 - Other hammer toe(s) (acquired), left foot Category: Medical Plan: * The patient has hammertoe deformities, particularly worst to the second toe, which are a result of post-stroke spasticity * Surgical intervention to straighten the toes is a potential option but will be deferred until after a neurology consultation, as controlling the spasms may improve the deformity. * A follow-up visit is scheduled for 2-3 months to reassess the condition and discuss further options, including hammertoe surgery, after the neurology evaluation. (4) Contracture, left ankle: Code(s): M24.572 - Contracture, left ankle Category: Medical Plan: * A custom ankle brace was considered but will not be ordered at this time, until after her neurology evaluation. (5) Tinea unguium: Code(s): B35.1 - Tinea unguium Category: Medical Plan: * The patient's nail changes are consistent with a fungal infection. * Rx ciclopirox * She was counseled that treatment requires daily application and may take three or more months to show results. Plan Patient Instructions - A referral has been made to a neurologist to help manage the muscle spasms in your leg and foot. - A prescription for an antifungal nail [place] will be sent to your pharmacy for the fungus on your toenails. Apply it every day for at least three months. - Return for a follow-up appointment in 2-3 months after you have seen the neurologist. Counseling The patient was counseled that her foot and hand issues, including muscle spasms and contractures, are the result of her stroke from five years ago. It was explained that while some damage is irreversible, there is potential for functional improvement by specifically treating the muscle spasms. The importance of seeing a neurologist was emphasized as the first and most crucial step, as they specialize in managing post-stroke conditions and can prescribe more effective medications for spasticity. Surgical options for her toes were discussed but deferred until after the neurology consultation, as treating the spasms may improve the deformity and make surgery more effective or unnecessary. She was advised on how to schedule her neurology appointment and the benefits of being on a cancellation list for a sooner visit. The patient's past struggles with depression and adherence to treatment were acknowledged, with encouragement that she is now in a better place to engage with her care. Orders: Referrals Neurology Referral G81.94 - Hemiplegia, unspecified affecting left nondominant side, Z86.73 - Personal history of transient ischemic attack (TIA), and cerebral infarction without residual deficits Medications: New ciclopirox 8% Apply to fungal toenails daily. Remove build-up at the end of the week. 1 appl topical BEDTIME 6.6 mL 3RF Fungal toenails 4 months B35.1 - Tinea unguium Coding Level of Care Code New Pt Level 4 (34472) Diagnoses Left hemiplegia G81.94 History of stroke Z86.73 Acquired hammer toe deformity of lesser toe of left foot M20.42 Contracture, left ankle M24.572 Tinea unguium B35.1 Time Spent (min) 35
== END 2025-10-18 11:13 | disposition home or self-care (01) ==
LOC: HO.HPODS 10:33
PROVIDERS: PCP Internal Medicine; Visit Provider Student in an Organized Health Care Education/Training Program
DX: G81.94 Hemiplegia, unspecified affecting left nondominant side (principal); Z86.73 Personal history of transient ischemic attack (TIA), and cerebral infarction without residual deficits; M20.42 Other hammer toe(s) (acquired), left foot; M24.572 Contracture, left ankle; B35.1 Tinea unguium
CPT/HCPCS: 99204

== ENCOUNTER → 2025-10-18 10:32 | Outpatient (BNVA) | payer OTHER, SELFPAY | PROVIDERS: PCP Internal Medicine; Visit Provider Student in an Organized Health Care Education/Training Program | DX: M24.572 Contracture, left ankle (principal); B35.1 Tinea unguium; M20.42 Other hammer toe(s) (acquired), left foot; G81.94 Hemiplegia, unspecified affecting left nondominant side; Z86.73 Personal history of transient ischemic attack (TIA), and cerebral infarction without residual deficits | CPT/HCPCS: 99202 ==

== ENCOUNTER → 2025-10-24 08:53 | Outpatient (AMB) | payer OTHER, SELFPAY ==
--- NOTE | 2025-10-24 09:07 | A.OFFVIS_ITS ---
Intake Visit Reasons: INP-TIA Allergies No Known Allergies (No Known Allergies*) Allergy (Verified 10/18/25 10:53) HPI Comments Details: The patient is a 45 year old female presenting for a neurological exam for management of post-stroke deficits. She has a history of a hemorrhagic stroke 5 years ago, at age 39, which was caused by high blood pressure. The stroke affected her left side, causing residual weakness in her left arm and foot. Her left foot exhibits a deformity described as a claw foot or hammer toe, where the toes curl up and lack strength. She has previously undergone physical and occupational therapy. She mentions a prior discussion about potential surgery on two of her toes. Her past medical history is significant for hypertension and hypercholesterolemia. Her mother has a history of high cholesterol and high blood pressure. Her current medications include Lipitor, labetalol, lisinopril, and Prozac. [facility] Medical History Dyslipidemia Ear discomfort Blurry vision CAD (coronary artery disease) Left hemiplegia History of stroke Essential hypertension Surgical History No pertinent past surgical history Family History Father HIV (human immunodeficiency virus infection) Mother Chronic mental illness Asthma Family/Other FH: mental illness Social History Housing: Apartment Alcohol intake: never Patient Tobacco Use Status: Current everyday Tobacco user Tobacco use type: Cigarette Cigarettes Per Day: 2 e-Cigarette/Vaping Use: Never Used Second Hand Smoke Exposure: No service: No Current occupational status: unemployed Cognitive needs: No Hearing needs: No Vision needs: No Female Reproductive History Menstrual Age of Menarche: 10 Review of Systems Narrative Constitutional:? Complain of fatigue and high blood pressure HEENT:? Complain of ear pain Cardiovascular:?No chest pain, palpitations, orthopnea, PND, or leg swelling. Respiratory:? Complain of shortness of breath. Gastrointestinal:? Complain of constipation and diarrhea. Genitourinary:? Complain of frequent urination. Musculoskeletal:? Complain of limited movements, back pain, neck pain, and leg cramping. Neurological:? Complain of difficulty walking, weakness, and memory problems. Psychiatric:? Complain of anxiety and depression. Endocrine:?No heat/cold intolerance, polydipsia, polyuria, or hair/skin changes. Hematologic/Lymphatic:?No easy bruising, bleeding, or lymphadenopathy. Integumentary (Skin):?No rash, lesions, itching, or color changes. Allergic/Immunologic:?No seasonal allergies, hives, or recurrent infections. Physical Exam Neuro Other: Mental Status: Alert and oriented to person, place, and time. Normal attention. Normal spontaneous speech, fluency, and comprehension. No obvious issues with mood and memory. Affect is appropriate. Cranial Nerves: CN II: Visual ohara full to confrontation, visual acuity intact. CN III, IV, : Pupils equal, round, reactive to light and accommodation. Extraocular movements are normal. CN V: Facial sensation is normal. CN VII: Facial movements symmetrical. CN VIII: Hearing intact to bedside conversation is normal. CN IX, X: Palate elevates symmetrically. CN XI: Shoulder shrug and head turn symmetrical. CN XII: Tongue midline without atrophy or fasciculations. Motor: Moderate left hemiparesis, arm or leg, with moderate hand and foot spasticity resulting in flexion deformity. Coordination: [id number] on right side is okay. Gait and Station: Left hemiparetic gait. Extrapyramidal: Full facial expressions and blinking. No rigidity. Movements are appropriate with no tremor or abnormality. Speech: Normal; no dysarthria or tremor. 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 Carrington for management of spasticity I explained to the patient that her left foot deformity is a result of post- stroke spasticity, where some muscles are hyperactive and pull her toes into a curled position. I informed her that she is a good candidate for Botox therapy to help weaken these overactive muscles. I advised that Botox treatment should be explored before considering surgery. I am referring her to a machine programmer, Dr. Carrington, who specializes in this type of treatment, and her office will contact the patient to schedule an appointment. We also discussed the importance of continuing her blood pressure medications to prevent future strokes. Orders: Referrals Physical Medicine and Rehabilitation Referral I69.398 - Other sequelae of cerebral infarction, R25.2 - Cramp and spasm Coding Level of Care Code New Pt Level 4 (46652) Diagnoses Left hemiplegia G81.94 Spasticity due to old stroke I69.398; R25.2
== END ==
LOC: HO.HSM 08:54
PROVIDERS: PCP Internal Medicine; Visit Provider Psychiatry & Neurology Neurology
DX: G81.94 Hemiplegia, unspecified affecting left nondominant side (principal); I69.398 Other sequelae of cerebral infarction; R25.2 Cramp and spasm
CPT/HCPCS: 99204

== ENCOUNTER → 2025-10-24 08:53 | Outpatient (BNVA) | payer OTHER, SELFPAY | PROVIDERS: PCP Internal Medicine; Visit Provider Psychiatry & Neurology Neurology | DX: G81.94 Hemiplegia, unspecified affecting left nondominant side (principal); I69.398 Other sequelae of cerebral infarction; I10 Essential (primary) hypertension; G24.8 Other dystonia; F17.210 Nicotine dependence, cigarettes, uncomplicated | CPT/HCPCS: 99202 ==